=== PATIENT | male | born 1995 | race Caucasian/White ===

== ENCOUNTER 2018-09-30 14:51 | Emergency (ER) | payer MEDICAID, SELFPAY ==
[2018-09-30 14:55] VITALS: BP 120/78; PULSE 68; RESP 16; TEMP 36.6; O2SAT 100
--- NOTE | 2018-09-30 15:01 | W.ED.GENAD ---
Discharge Plan Disposition Patient Disposition: HOME Condition: Stable Discharge Details Chief Complaint: DentalOral Clinical Impression: Dental caries ED Provider: Charles Stone Home Meds and New Rx's Prescriptions: New clindamycin HCl 150 mg capsule 450 mg PO TID 10 Days Qty: 90 RF: 0 No Action penicillin V potassium 500 MG tablet 500 mg PO Q8H PRN PRN10 Days RF: 0 Discharge Instructions Instructions: Dental Caries (ED) Medical Decision Making 23 yo male comes in with months of left upper posterior and mid molar pain. Has been scheduled to have it pull but states his dentist has postponed it multiple times. HAs been on amoxicillin for a month per pt and still has pain so came here for an eval. 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 HE has multiple severely eroded teeth and numerous caries, pain with percussion to the posterior left upper posterior and mid molars with no evidence of abscess at this time. Will add on clindamycin but advised he needs to see his dentist to have this addressed Differential Diagnosis dental caries, dental infection HPI General Mode of arrival: ambulatory. Date/Time Provider Initiated Documentation: 09/30/18 15:01. Limitations to Documentation: no limitations. Information obtained by: patient. History of Present Illness 23 year old M presents to the emergency department with the chief complaint of left upper tooth pain, described as severe, and is localized to the mouth. Patient reports no radiation. Patient started experiencing this month(s) (2) and it has been constant. No relieving factors improve symptom(s), No exacerbating factors reported . Patient notes no other symptoms.. Related Data Home Medications Medication Instructions Recorded Confirmed penicillin V potassium 500 mg PO Q8H PRN PRN 10 Days 03/15/16 tablet clindamycin HCl 450 mg PO TID 10 Days #90 cap 09/30/18 Previous Rx's Medication Instructions Recorded penicillin V potassium 500 mg PO Q8H PRN PRN 10 Days 03/15/16 tablet clindamycin HCl 450 mg PO TID 10 Days #90 cap 09/30/18 Allergies Allergy/AdvReac Type Severity Reaction Status Date / Time No Known Allergies Allergy Unverified 09/30/18 15:01 General Stated Complaint: DentalOral LORRAINE: 4 Review of Systems Review of Systems All systems reviewed & are unremarkable except as noted in HPI and below Constitutional Denies chills, Denies fever(s) and Denies weakness ENT Denies change in voice Cardiovascular Denies chest pain and Denies dyspnea Respiratory Denies cough and Denies dyspnea Gastrointestinal Denies abdominal pain, Denies nausea and Denies vomiting Integumentary/Breasts Denies rash Neurologic Denies weakness [facility] Social History Smoking/Tobacco Use Status: Current every day Drug use: Daily Substance use type: marijuana Do you feel safe at home: Yes Do you feel safe in your relationship?: Yes Exam Const General: no acute distress Orientation: alert HENMT Head: normal to inspection Ears: external ears normal General nose exam: external nose normal Mouth: moist mucous membranes Eyes General: appearance normal, both eyes and all related structures Neck Neck: normal visual inspection Resp Effort & Inspection: normal respiratory effort and able to speak in complete sentences Cardio Rate: regular rate Skin General skin exam: no rashes or lesions noted Neuro General: alert and oriented x3 Extrem General: normal to inspection Psych Mental Status: mental status grossly normal Course Vital Signs Temperature 36.6 C 09/30/18 14:55 Pulse 68 09/30/18 14:55 Respiratory Rate 16 09/30/18 14:55 Blood Pressure 120/78 09/30/18 14:55 Pulse Oximetry 100 09/30/18 14:55 Temperature 36.6 C 09/30/18 14:55 Temperature Source Skin 09/30/18 14:55 Pulse 68 09/30/18 14:55 Respiratory Rate 16 09/30/18 14:55 Respiratory Effort Non-Labored 09/30/18 14:59 Blood Pressure 120/78 09/30/18 14:55 Blood Pressure Position Sitting 09/30/18 14:55 Pulse Oximetry 100 09/30/18 14:55 Oxygen Delivery Method Room Air 09/30/18 14:55 Oxygen Flow Rate 0 09/30/18 14:55 Pain Level 8 09/30/18 14:55
--- NOTE | 2018-09-30 15:09 | ED.GENADUL_ITS ---
Discharge Plan Disposition Patient Disposition: HOME Condition: Stable Discharge Details Chief Complaint: DentalOral Clinical Impression: Dental caries ED Provider: Charles Stone Home Meds and New Rx's Prescriptions: New clindamycin HCl 150 mg capsule 450 mg PO TID 10 Days Qty: 90 RF: 0 No Action penicillin V potassium 500 MG tablet 500 mg PO Q8H PRN PRN10 Days RF: 0 Discharge Instructions Instructions: Dental Caries (ED) Medical Decision Making 23 yo male comes in with months of left upper posterior and mid molar pain. Has been scheduled to have it pull but states his dentist has postponed it multiple times. HAs been on amoxicillin for a month per pt and still has pain so came here for an eval. 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 HE has multiple severely eroded teeth and numerous caries, pain with percussion to the posterior left upper posterior and mid molars with no evidence of abscess at this time. Will add on clindamycin but advised he needs to see his dentist to have this addressed Differential Diagnosis dental caries, dental infection HPI General Mode of arrival: ambulatory . Date/Time Provider Initiated Documentation: 09/30/18 15:01 . Limitations to Documentation: no limitations . Information obtained by: patient . History of Present Illness 23 year old M presents to the emergency department with the chief complaint of left upper tooth pain, described as severe, and is localized to the mouth. Patient reports no radiation. Patient started experiencing this month(s) (2) and it has been constant. No relieving factors improve symptom(s), No exacerbating factors reported . Patient notes no other symptoms.. Related Data Home Medications Medication Instructions Recorded Confirmed penicillin V potassium 500 mg PO Q8H PRN PRN 10 Days 03/15/16 tablet clindamycin HCl 450 mg PO TID 10 Days #90 cap 09/30/18 Previous Rx's Medication Instructions Recorded penicillin V potassium 500 mg PO Q8H PRN PRN 10 Days 03/15/16 tablet clindamycin HCl 450 mg PO TID 10 Days #90 cap 09/30/18 Allergies Allergy/AdvReac Type Severity Reaction Status Date / Time No Known Allergies Allergy Unverified 09/30/18 15:01 General Stated Complaint: DentalOral LORRAINE: 4 Review of Systems Review of Systems All systems reviewed & are unremarkable except as noted in HPI and below Constitutional Denies chills, Denies fever(s) and Denies weakness ENT Denies change in voice Cardiovascular Denies chest pain and Denies dyspnea Respiratory Denies cough and Denies dyspnea Gastrointestinal Denies abdominal pain, Denies nausea and Denies vomiting Integumentary/Breasts Denies rash Neurologic Denies weakness [facility] Social History Smoking/Tobacco Use Status: Current every day Drug use: Daily Substance use type: marijuana Do you feel safe at home: Yes Do you feel safe in your relationship?: Yes Exam Const General: no acute distress Orientation: alert HENMT Head: normal to inspection Ears: external ears normal General nose exam: external nose normal Mouth: moist mucous membranes Eyes General: appearance normal, both eyes and all related structures Neck Neck: normal visual inspection Resp Effort & Inspection: normal respiratory effort and able to speak in complete sentences Cardio Rate: regular rate Skin General skin exam: no rashes or lesions noted Neuro General: alert and oriented x3 Extrem General: normal to inspection Psych Mental Status: mental status grossly normal Course Vital Signs Temperature 36.6 C 09/30/18 14:55 Pulse 68 09/30/18 14:55 Respiratory Rate 16 09/30/18 14:55 Blood Pressure 120/78 09/30/18 14:55 Pulse Oximetry 100 09/30/18 14:55 Temperature 36.6 C 09/30/18 14:55 Temperature Source Skin 09/30/18 14:55 Pulse 68 09/30/18 14:55 Respiratory Rate 16 09/30/18 14:55 Respiratory Effort Non-Labored 09/30/18 14:59 Blood Pressure 120/78 09/30/18 14:55 Blood Pressure Position Sitting 09/30/18 14:55 Pulse Oximetry 100 09/30/18 14:55 Oxygen Delivery Method Room Air 09/30/18 14:55 Oxygen Flow Rate 0 09/30/18 14:55 Pain Level 8 09/30/18 14:55
== END 2018-09-30 15:15 | disposition home or self-care (01) ==
LOC: ER 15:14
PROVIDERS: Emergency Provider Emergency Medicine
DX: K02.9 Dental caries, unspecified (principal)
CPT/HCPCS: 99283

== ENCOUNTER 2018-11-22 18:39 | Emergency (ER) | payer MEDICAID, SELFPAY ==
[2018-11-22 18:46] VITALS: BP 123/59; PULSE 89; RESP 16; TEMP 37.1; O2SAT 98
--- NOTE | 2018-11-22 19:50 | W.ED.GENAD ---
Discharge Plan Disposition Patient Disposition: HOME Condition: Fair Discharge Details Chief Complaint: Abd Prob Clinical Impression: Nausea, vomiting and diarrhea Primary Care Provider: None,None ED Provider: Trini Kiser Home Meds and New Rx's Prescriptions: New ondansetron 4 mg tablet,disintegrating 4 mg PO TID PRN (Reason: nausea and vomiting) Qty: 10 RF: 0 No Action cephalexin [Keflex] 500 mg Capsule 500 mg PO QID RF: 0 Discharge Instructions Instructions: Acute Nausea and Vomiting (ED) Additional Instructions: Encourage hydration. Tylenol and ibuprofen as needed for discomfort. He may use Zofran as prescribed to help with recurrent nausea or vomiting. Please begin probiotic, this is available [id number] and should be taken daily. He will need follow-up with primary care, I have asked her certified caregiver help facilitate follow-up appointment. If you do not hear from them in the next 2 business days, please call. If you develop increased pain, fever/chills, inability to stay hydrated or the new/worsening symptoms please seek care urgently once again. Discharge Data Discharge Date/Time-TO BE ENTERED AT DEPARTURE: 11/22/18 21:04 Medical Decision Making Patient 23-year-old male presenting today with chief complaint of nausea, vomiting and soft bowel movements for the past 2 months. Is concerned that this is linked with him taking Tylenol 3 which he took after having dental pain. States that he has had one soft bowel movement per day since then. Reports that he has vomited x3 today. Is not currently nauseated. Denies any abdominal pain but reports he can have cramping during episodes of emesis.. No shortness of breath or chest pain. Patient currently drinks every day, uses marijuana every day and has for the past several years. Reports that symptoms are worse upon first awakening. Hot showers seem to improve. Patient also believes his eyes have been yellow but did not note any jaundice this time. Will evaluate for any electrolyte abnormalities, check liver panel, hydrate the patient. Abdomen is soft and nontender. I do not see any evidence of acute surgical pathology Labs are reassuring at this time. There is mild leukocytosis but this may be exacerbated by stress. Neurological abnormalities. Patient in particular was concerned about liver function which is normal. Advised only follow-up with primary care physician. Patient does not currently have one, will help establish this. I did advised stopping smoking pot. Patient will be scribed Zofran to help with nausea should return. Advised probiotic. We discussed new/worsening symptoms when to seek care urgently once again. Advised follow-up with primary care within the next few weeks for reevaluation. All his questions and concerns were addressed and he is in agreement this plan HPI General Mode of arrival: ambulatory. Date/Time Provider Initiated Documentation: 11/22/18 19:49. Limitations to Documentation: no limitations. Information obtained by: patient and RN notes reviewed. History of Present Illness 23 year old M presents to the emergency department with the chief complaint of N/V/D, described as moderate, Quality is described as other (cramping), and is localized to the abdomen. Patient reports no radiation. Patient started experiencing this month(s) (2) and it has been intermittent. No relieving factors improve symptom(s), No exacerbating factors reported . Patient notes nausea/vomiting (vomited x 3 today); denies chest pain, cough, diaphoresis, fever/chills, headaches, loss of appetite, rash, shortness of breath and weakness. Patient did receive the following treatments prior to arrival, none Related Data Home Medications Medication Instructions Recorded Confirmed cephalexin [Keflex] 500 mg PO QID 11/22/18 11/22/18 ondansetron 4 mg PO TID PRN #10 tab 11/22/18 Previous Rx's Medication Instructions Recorded ondansetron 4 mg PO TID PRN #10 tab 11/22/18 Allergies Allergy/AdvReac Type Severity Reaction Status Date / Time No Known Allergies Allergy Unverified 11/22/18 18:51 General Stated Complaint: Abd Prob LORRAINE: 4 Review of Systems Constitutional Reports as per HPI, Denies chills, Denies fatigue, Denies fever(s) and Denies headache(s) ENT Denies headache(s) Cardiovascular Reports as per HPI, Denies chest pain and Denies dyspnea Respiratory Reports as per HPI, Denies cough and Denies dyspnea Gastrointestinal Reports as per HPI, Reports abdominal pain (endorses cramping) and Reports change in stool character (soft) Genitourinary Denies system reviewed and no additional complaints, except as docu (patient denies any change in urinary habits) Musculoskeletal Reports as per HPI and Denies back pain Integumentary/Breasts Reports as per HPI and Denies rash Neurologic Reports as per HPI and Denies headache(s) Endocrine Denies fatigue [facility] Social History Smoking/Tobacco Use Status: Current every day Tobacco Type: cigarettes Alcohol Intake: current Alcohol Intake frequency: holidays/special occasions only Drug use: Daily Substance use type: marijuana Do you feel safe at home: Yes Do you feel safe in your relationship?: Yes Exam Const General: cooperative, healthy appearing, comfortable, no acute distress and well developed Nutritional Appearance: average body habitus and well nourished Orientation: alert and awake HENMT Head: normal to inspection Mouth: moist mucous membranes Resp Effort & Inspection: normal respiratory effort, able to speak in complete sentences and no respiratory distress Auscultation: clear to auscultation bilaterally, no rales, no rhonchi and no wheezes Cardio Rate: regular rate Rhythm: regular rhythm Heart Sounds: S1 normal and S2 normal GI Inspection: normal to inspection, no edema and non-distended Palpation: soft, no hepatosplenomegaly, not firm, no guarding, no masses and nontender Percussion: normal to percussion Auscultation: normal bowel sounds Back/Spine/Pelvis Back: no CVA tenderness Skin General skin exam: no rashes or lesions noted Trauma: no lacerations or abrasions Neuro General: alert and awake Cognition: normal cognition Speech: speech normal Gait: normal gait Psych Appearance: grossly normal and well kempt Mental Status: mental status grossly normal Speech and Movement: speech and movement normal Course Vital Signs Temperature 37.1 C 11/22/18 18:46 Pulse 89 11/22/18 18:46 Respiratory Rate 16 11/22/18 18:46 Blood Pressure 123/59 L 11/22/18 18:46 Pulse Oximetry 98 11/22/18 18:46 Temperature 37.1 C 11/22/18 18:46 Temperature Source Skin 11/22/18 18:46 Pulse 89 11/22/18 18:46 Respiratory Rate 16 11/22/18 18:46 Respiratory Effort Non-Labored 11/22/18 18:50 Blood Pressure 123/59 L 11/22/18 18:46 Blood Pressure Position Sitting 11/22/18 18:46 Pulse Oximetry 98 11/22/18 18:46 Oxygen Delivery Method Room Air 11/22/18 18:46 Oxygen Flow Rate 0 11/22/18 18:46 Pain Level 0 11/22/18 18:46
--- NOTE | 2018-11-22 20:01 | ED.GENADUL_ITS ---
Discharge Plan Disposition Patient Disposition: HOME Condition: Fair Discharge Details Chief Complaint: Abd Prob Clinical Impression: Nausea, vomiting and diarrhea Primary Care Provider: None,None ED Provider: Trini Kiser Home Meds and New Rx's Prescriptions: New ondansetron 4 mg tablet,disintegrating 4 mg PO TID PRN (Reason: nausea and vomiting) Qty: 10 RF: 0 No Action cephalexin [Keflex] 500 mg Capsule 500 mg PO QID RF: 0 Discharge Instructions Instructions: Acute Nausea and Vomiting (ED) Additional Instructions: Encourage hydration. Tylenol and ibuprofen as needed for discomfort. He may use Zofran as prescribed to help with recurrent nausea or vomiting. Please begin probiotic, this is available [id number] and should be taken daily. He will need follow-up with primary care, I have asked her career placement specialist help facilitate follow-up appointment. If you do not hear from them in the next 2 business days, please call. If you develop increased pain, fever/chills, inability to stay hydrated or the new/worsening symptoms please seek care urgently once again. Discharge Data Discharge Date/Time-TO BE ENTERED AT DEPARTURE: 11/22/18 21:04 Medical Decision Making Patient 23-year-old male presenting today with chief complaint of nausea, vomiting and soft bowel movements for the past 2 months. Is concerned that this is linked with him taking Tylenol 3 which he took after having dental pain. States that he has had one soft bowel movement per day since then. Reports that he has vomited x3 today. Is not currently nauseated. Denies any abdominal pain but reports he can have cramping during episodes of emesis.. No shortness of breath or chest pain. Patient currently drinks every day, uses marijuana every day and has for the past several years. Reports that symptoms are worse upon first awakening. Hot showers seem to improve. Patient also believes his eyes have been yellow but did not note any jaundice this time. Will evaluate for any electrolyte abnormalities, check liver panel, hydrate the patient. Abdomen is soft and nontender. I do not see any evidence of acute surgical pathology Labs are reassuring at this time. There is mild leukocytosis but this may be exacerbated by stress. Neurological abnormalities. Patient in particular was concerned about liver function which is normal. Advised only follow-up with primary care physician. Patient does not currently have one, will help establish this. I did advised stopping smoking pot. Patient will be scribed Zofran to help with nausea should return. Advised probiotic. We discussed new/worsening symptoms when to seek care urgently once again. Advised follow-up with primary care within the next few weeks for reevaluation. All his questions and concerns were addressed and he is in agreement this plan HPI General Mode of arrival: ambulatory . Date/Time Provider Initiated Documentation: 11/22/18 19:49 . Limitations to Documentation: no limitations . Information obtained by: patient and RN notes reviewed . History of Present Illness 23 year old M presents to the emergency department with the chief complaint of N/V/D, described as moderate, Quality is described as other (cramping), and is localized to the abdomen. Patient reports no radiation. Patient started experiencing this month(s) (2) and it has been intermittent. No relieving factors improve symptom(s), No exacerbating factors reported . Patient notes nausea/vomiting (vomited x 3 today); denies chest pain, cough, diaphoresis, fever/chills, headaches, loss of appetite, rash, shortness of breath and weakness. Patient did receive the following treatments prior to arrival, none Related Data Home Medications Medication Instructions Recorded Confirmed cephalexin [Keflex] 500 mg PO QID 11/22/18 11/22/18 ondansetron 4 mg PO TID PRN #10 tab 11/22/18 Previous Rx's Medication Instructions Recorded ondansetron 4 mg PO TID PRN #10 tab 11/22/18 Allergies Allergy/AdvReac Type Severity Reaction Status Date / Time No Known Allergies Allergy Unverified 11/22/18 18:51 General Stated Complaint: Abd Prob LORRAINE: 4 Review of Systems Constitutional Reports as per HPI, Denies chills, Denies fatigue, Denies fever(s) and Denies headache(s) ENT Denies headache(s) Cardiovascular Reports as per HPI, Denies chest pain and Denies dyspnea Respiratory Reports as per HPI, Denies cough and Denies dyspnea Gastrointestinal Reports as per HPI, Reports abdominal pain (endorses cramping) and Reports change in stool character (soft) Genitourinary Denies system reviewed and no additional complaints, except as docu (patient denies any change in urinary habits) Musculoskeletal Reports as per HPI and Denies back pain Integumentary/Breasts Reports as per HPI and Denies rash Neurologic Reports as per HPI and Denies headache(s) Endocrine Denies fatigue [facility] Social History Smoking/Tobacco Use Status: Current every day Tobacco Type: cigarettes Alcohol Intake: current Alcohol Intake frequency: holidays/special occasions only Drug use: Daily Substance use type: marijuana Do you feel safe at home: Yes Do you feel safe in your relationship?: Yes Exam Const General: cooperative, healthy appearing, comfortable, no acute distress and well developed Nutritional Appearance: average body habitus and well nourished Orientation: alert and awake HENMT Head: normal to inspection Mouth: moist mucous membranes Resp Effort & Inspection: normal respiratory effort, able to speak in complete sentences and no respiratory distress Auscultation: clear to auscultation bilaterally, no rales, no rhonchi and no wheezes Cardio Rate: regular rate Rhythm: regular rhythm Heart Sounds: S1 normal and S2 normal GI Inspection: normal to inspection, no edema and non-distended Palpation: soft, no hepatosplenomegaly, not firm, no guarding, no masses and nontender Percussion: normal to percussion Auscultation: normal bowel sounds Back/Spine/Pelvis Back: no CVA tenderness Skin General skin exam: no rashes or lesions noted Trauma: no lacerations or abrasions Neuro General: alert and awake Cognition: normal cognition Speech: speech normal Gait: normal gait Psych Appearance: grossly normal and well kempt Mental Status: mental status grossly normal Speech and Movement: speech and movement normal Course Vital Signs Temperature 37.1 C 11/22/18 18:46 Pulse 89 11/22/18 18:46 Respiratory Rate 16 11/22/18 18:46 Blood Pressure 123/59 L 11/22/18 18:46 Pulse Oximetry 98 11/22/18 18:46 Temperature 37.1 C 11/22/18 18:46 Temperature Source Skin 11/22/18 18:46 Pulse 89 11/22/18 18:46 Respiratory Rate 16 11/22/18 18:46 Respiratory Effort Non-Labored 11/22/18 18:50 Blood Pressure 123/59 L 11/22/18 18:46 Blood Pressure Position Sitting 11/22/18 18:46 Pulse Oximetry 98 11/22/18 18:46 Oxygen Delivery Method Room Air 11/22/18 18:46 Oxygen Flow Rate 0 11/22/18 18:46 Pain Level 0 11/22/18 18:46
[2018-11-22] MEDS: Normal Saline 1,000 ML 1000 ML IV (20:06)
[2018-11-22 20:13] LABS: Abs Immature Grans 0.03 k/cumm (0.0-0.09); Absolute Basophil Count 0.04 k/cumm (0.0-0.2); Absolute Eosinophil Count 0.07 k/cumm (0.0-0.7); Absolute Lymphocyte Count 2.42 k/cumm (1.2-3.4); Absolute Monocyte Count 0.87 k/cumm (0.11-0.7); Absolute Neutrophil Count 8.49 k/cumm (1.2-6.7); Basophils % 0.3; Eosinophils % 0.6; HCT 41.9 % (40.0-50.0); HGB 14.5 g/dL (13.5-17.5); Immature Grans % 0.3; Lymphocytes % 20.3; Mean Corp. HGB Concentration 34.6 g/dL (32.0-36.0); Mean Corpuscular Hemoglobin 31.2 pg (27.0-33.0); Mean Corpuscular Volume 90.1 fL (80-95); Mean Platelet Volume 8.7 fL (8.0-11.0); Monocytes % 7.3; Neutrophils % 71.2; Platelet Count 273 x1000/uL (130-400); RBC 4.65 m/cumm (4.50-6.00); RBC Distribution Width 12.7 % (11.8-14.1); White Blood Cell Count 11.92 k/cumm (4.4-10.8)
[2018-11-22 20:29] LABS: ALT 27 U/L (12-78); AST 14 U/L (15-37); Alkaline Phosphatase 67 U/L (46-116); Anion Gap 8.6 mmol/L (3-11); BUN 5 mg/dL (7-18); Bilirubin, Total 0.3 mg/dL (0.2-1.0); CO2 28.4 mmol/L (21.0-32.0); Chloride 102 mmol/L (98-107); Glucose 93 mg/dL (70-100); Magnesium 1.8 mg/dL (1.8-2.4); Potassium 3.7 mmol/L (3.5-5.1); Sodium 139 mmol/L (136-145); Total Protein 6.9 g/dL (6.4-8.2)
[2018-11-22 20:30] LABS: Troponin I < 0.02 ng/mL (0.00-0.06)
[2018-11-22 20:56] VITALS: BP 122/67; PULSE 77; RESP 16; TEMP 36.7; O2SAT 97
--- NOTE | 2018-11-26 09:03 | PDOC.ERCMPRO ---
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 Referral faxed to [facility] this am.
--- NOTE | 2018-11-26 09:04 | CMPROGNOTE_ITS ---
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 Referral faxed to [facility] this am.
== END 2018-11-22 21:04 | disposition home or self-care (01) ==
PROVIDERS: Emergency Provider Physician Assistant
DX: R11.2 Nausea with vomiting, unspecified (principal); R19.7 Diarrhea, unspecified
CPT/HCPCS: 36415; 80053; 96360; 99283; 83735; 84484; 85025

== ENCOUNTER 2019-02-06 12:52 | Emergency (ER) | payer MEDICAID, SELFPAY ==
[2019-02-06 12:59] VITALS: BP 117/95; PULSE 87; RESP 20; TEMP 36.7; O2SAT 99
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
[2019-02-06] MEDS: Normal Saline 1,000 ML 1000 ML IV (13:20)
[2019-02-06] MEDS: Ketorolac 15 MG/ML VIAL IVP (13:24)
[2019-02-06] MEDS: LORazepam 2 MG/ML VIAL 1 MG IVP (13:24)
[2019-02-06 13:39] LABS: PTT Activated 24.6 sec (21.0-31.4); Prothrombin Time 9.9 sec (9.3-11.0)
[2019-02-06 13:40] LABS: ALT 24 U/L (12-78); AST 16 U/L (15-37); Albumin 5.1 g/dL (3.4-5.0); Alkaline Phosphatase 69 U/L (46-116); Anion Gap 8.5 mmol/L (3-11); BUN 9 mg/dL (7-18); Bilirubin, Total 0.9 mg/dL (0.2-1.0); CO2 32.5 mmol/L (21.0-32.0); CREATININE 0.86 mg/dL (0.70-1.30); Calcium 9.8 mg/dL (8.5-10.1); Chloride 98 mmol/L (98-107); Glucose 105 mg/dL (70-100); Potassium 4.3 mmol/L (3.5-5.1); Sodium 139 mmol/L (136-145); Total Protein 8.8 g/dL (6.4-8.2)
[2019-02-06] MEDS: Omnipaque 350 MG/ML 100 ML BTL IJ (13:57)
[2019-02-06 14:11] LABS: HGB 17.2 g/dL (13.5-17.5); RBC 5.52 m/cumm (4.50-6.00)
[2019-02-06 14:12] LABS: HCT 48.9 % (40.0-50.0); Mean Corp. HGB Concentration 35.2 g/dL (32.0-36.0); Mean Corpuscular Hemoglobin 31.2 pg (27.0-33.0); Mean Corpuscular Volume 88.6 fL (80-95); Mean Platelet Volume 10.3 fL (8.0-11.0); Platelet Count 308 x1000/uL (130-400); RBC Distribution Width 13.5 % (11.8-14.1)
[2019-02-06 14:22] LABS: Absolute Lymphocyte Count 1.88 k/cumm (1.2-3.4); Absolute Monocyte Count 1.41 k/cumm (0.11-0.7); Atypical Lymphocytes % 3; Diff Comment Manual Differential; RBC Morphology Normal
[2019-02-06 15:04] VITALS: BP 117/80; PULSE 75; RESP 16; O2SAT 98
== END 2019-02-06 15:15 | disposition home or self-care (01) ==
PROVIDERS: Emergency Provider Emergency Medicine
DX: S09.90XA Unspecified injury of head, initial encounter (principal); S39.91XA Unspecified injury of abdomen, initial encounter; V47.6XXA Car passenger injured in collision with fixed or stationary object in traffic accident, initial encounter; R51 Headache; R11.0 Nausea; M54.5 Low back pain
CPT/HCPCS: 36415; 80053; 90471; 96361; 96374; 96375; 99285; 70450; 72125; 74177; 85025; 85610; 85730; 99284; J1885; J2060; J3490

== ENCOUNTER 2019-12-02 16:43 | Emergency (ER) | payer MEDICAID, SELFPAY ==
[2019-12-02 16:52] VITALS: BP 127/77; PULSE 104; RESP 16; TEMP 36.5; O2SAT 98
--- NOTE | 2019-12-02 17:07 | ED.GENADUL_ITS ---
Discharge Plan Disposition Patient Disposition: HOME Condition: Improving Discharge Details Chief Complaint: DentalOral Clinical Impression: Odontalgia Primary Care Provider: None,None ED Provider: Marv Suarez Home Meds and New Rx's Prescriptions: New penicillin V potassium 500 mg tablet 500 mg PO TID 10 Days Qty: 30 RF: 0 Discharge Instructions Instructions: Toothache (ED) Additional Instructions: Please call your dentist to schedule a follow-up and to reschedule your planned extractions. Stop the amoxicillin and begin penicillin as prescribed. Warm salt water gargling will help to speed healing of the infection. Return to the ER for any acute concern. Medical Decision Making 24-year-old male presents from home with known poor dentition, previous dental infections, now with discrete pain and swelling overlying left upper premolar approximately tooth #14. Patient consented for apical tooth anesthesia with lidocaine which I performed and subsequent attempted needle aspiration with scant bloody discharge. Discussed with him that he likely has apical abscess forming I will have him take a course of penicillin. We will have him follow-up with his dentist for recheck. HPI General Mode of arrival: ambulatory . Date/Time Provider Initiated Documentation: 12/02/19 16:45 . Limitations to Documentation: no limitations . Information obtained by: patient . History of Present Illness 24 year old M presents to the emergency department with the chief complaint of Left upper dental pain, described as similar to prior episodes, Quality is described as dull, and is localized to the mouth. Patient reports no radiation. Patient started experiencing this day(s) and it has been constant. No relieving factors improve symptom(s), No exacerbating factors reported . Patient notes denies fever/chills, headaches, loss of appetite and nausea/vomiting. Patient did receive the following treatments prior to arrival, other (Started amoxicillin that he had) Related Data Home Medications Medication Instructions Recorded Confirmed penicillin V potassium 500 mg PO TID 10 Days #30 tab 12/02/19 Previous Rx's Medication Instructions Recorded penicillin V potassium 500 mg PO TID 10 Days #30 tab 12/02/19 Allergies Allergy/AdvReac Type Severity Reaction Status Date / Time No Known Allergies Allergy Unverified 12/02/19 16:56 General Stated Complaint: DentalOral LORRAINE: 4 Review of Systems Narrative: No drooling, change to voice, no fever. Poor dentition. Follows with dentistry. 6 systems reviewed and otherwise negative [facility] Social History Smoking/Tobacco Use Status: Current every day Tobacco Type: cigarettes Alcohol Intake: current Alcohol Intake frequency: holidays/special occasions only Drug use: Daily Substance use type: marijuana Do you feel safe at home: Yes Do you feel safe in your relationship?: Yes Exam Narrative Exam Narrative: GEN: awake, alert, oriented 3. Pleasant, well groomed, interactive. HEAD: Normocephalic, atraumatic ENT: Mucous membranes moist, oropharynx with poor dentition, left upper premolar with broken costs and discrete tenderness at the gum line EYES: PERRL, EOMI CHEST/RESP: Nontender, clear to auscultation bilateral, no wheeze/rhonchi/rales Neuro: Grossly normal neurologic exam, conversant, interactive. Psych: Speech fluent, thoughts congruent, affect normal Course Vital Signs Vital signs: Vital Signs Temperature 36.5 C 12/02/19 16:52 Pulse 104 H 12/02/19 16:52 Respiratory Rate 16 12/02/19 16:52 Blood Pressure 127/77 12/02/19 16:52 Pulse Oximetry 98 12/02/19 16:52 Temperature 36.5 C 12/02/19 16:52 Temperature Source Temporal Artery Scan 12/02/19 16:52 Pulse 104 H 12/02/19 16:52 Respiratory Rate 16 12/02/19 16:52 Respiratory Effort Non-Labored 12/02/19 16:55 Blood Pressure 127/77 12/02/19 16:52 Blood Pressure Position Sitting 12/02/19 16:52 Pulse Oximetry 98 12/02/19 16:52 Oxygen Delivery Method Room Air 12/02/19 16:52 Oxygen Flow Rate 0 12/02/19 16:52 Pain Level 0 12/02/19 16:58
[2019-12-02] MEDS: Penicillin V POTASSIUM 500 MG TAB, 4 TABS/BTL PO (17:31)
== END 2019-12-02 17:40 | disposition home or self-care (01) ==
LOC: ER 17:26
PROVIDERS: Emergency Provider Emergency Medicine
DX: R68.84 Jaw pain (principal); K08.89 Other specified disorders of teeth and supporting structures; R22.0 Localized swelling, mass and lump, head
CPT/HCPCS: 10160

== ENCOUNTER 2019-12-31 13:55 | Emergency (ER) | payer MEDICAID, SELFPAY ==
[2019-12-31 14:03] VITALS: BP 135/80; PULSE 84; RESP 16; TEMP 37.1; O2SAT 100
--- NOTE | 2019-12-31 14:19 | ED.GENADUL_ITS ---
Discharge Plan Disposition Patient Disposition: HOME Condition: Stable Discharge Details Chief Complaint: RashLesion Clinical Impression: Dermatitis Primary Care Provider: None,None ED Provider: Yoel Sue Home Meds and New Rx's Prescriptions: New hydrocortisone 2 % lotion 1 applic TP BID PRNQty: 29.6 RF: 0 Discharge Instructions Instructions: Dermatitis (ED) Additional Instructions: Hydrocortisone cream as directed. Urus-[id number] Benadryl as directed for symptomatic control. Please watch for new or worsening symptoms and return to the ER for any concerns. Medical Decision Making Patient presents with a pruritic erythematous rash that has been present for the past 8 days or so after sleeping in a new hotel. Otherwise asymptomatic. No rash elsewhere on his body. He has not tried any kgoj-nwf-pbvtxet medications for his symptoms. Evaluation is not consistent with scabies, cellulitis, bedbugs, etc. More likely a contact dermatitis. He appears well, nontoxic. Will provide a prescription for hydrocortisone and recommend use [id number] Benadryl as first-line therapy. Patient comfortable this plan and has no additional questions or concerns HPI General Mode of arrival: ambulatory . Date/Time Provider Initiated Documentation: 12/31/19 13:56 . Limitations to Documentation: no limitations . Information obtained by: patient . HPI Narrative: This is a 24-year-old gentleman presenting for an itchy, red rash that has been present daily for roughly 8 days after staying at a new hotel. He denies any obvious new environmental exposures but questions if this may be a reaction to the sheets. He denies any pain, recent illness or trauma. He denies numbness, tingling, weakness. He denies rash elsewhere in his body, mouth or tongue swelling, wheezing or difficulty breathing. He has not tried any vuna-fnv-aciugrc medications. He denies any rash or itching specifically in the webbing of his hands, feet, axilla. Related Data Home Medications Medication Instructions Recorded Confirmed hydrocortisone 1 applic TP BID PRN #29.6 ml 12/31/19 Previous Rx's Medication Instructions Recorded hydrocortisone 1 applic TP BID PRN #29.6 ml 12/31/19 Allergies Allergy/AdvReac Type Severity Reaction Status Date / Time No Known Allergies Allergy Unverified 12/31/19 14:07 General Stated Complaint: RashLesion LORRAINE: 4 Review of Systems Constitutional Constitutional: Denies fever(s) ENT Ears, Nose, Mouth, and Throat: Denies sore throat and Denies tongue swelling Musculoskeletal Musculoskeletal: Denies numbness and Denies tingling Integumentary/Breasts Skin/Breast: Reports rash Neurologic Neurologic: Denies numbness and Denies tingling Allergic/Immunologic Allergic/Immunologic: Denies tongue swelling [facility] Social History Smoking/Tobacco Use Status: Current every day Tobacco Type: cigarettes Alcohol Intake: never Drug use: Daily Substance use type: marijuana Do you feel safe at home: Yes Do you feel safe in your relationship?: Yes Exam Const General: cooperative, healthy appearing, comfortable and no acute distress Orientation: alert and awake HENMT Head: normal to inspection, normocephalic and atraumatic Mouth: moist mucous membranes Eyes Conjunctivae: conjunctivae normal Neck Neck: normal visual inspection, trachea midline and supple Resp Effort & Inspection: normal respiratory effort and able to speak in complete sentences Cardio Rate: regular rate Rhythm: regular rhythm Skin Lesions: no lesions Full body images: 1. Scant, macular-papular, erythematous rash. Areas of excoriation. There is no warmth, induration, fluctuance, weeping. 2. Scant, macular-papular, erythematous rash. Areas of excoriation. There is no warmth, induration, fluctuance, weeping. Neuro General: patient alert, patient awake, patient oriented x3, moves all extremities and no focal motor deficits Gait: normal gait Sensory Exam: no sensory deficits noted Psych Appearance: grossly normal Mental Status: mental status grossly normal Course Vital Signs Vital signs: Vital Signs Temperature 37.1 C 12/31/19 14:03 Pulse 84 12/31/19 14:03 Respiratory Rate 16 12/31/19 14:03 Blood Pressure 135/80 12/31/19 14:03 Pulse Oximetry 100 12/31/19 14:03 Temperature 37.1 C 12/31/19 14:03 Pulse 84 12/31/19 14:03 Respiratory Rate 16 12/31/19 14:03 Respiratory Effort Non-Labored 12/31/19 14:06 Blood Pressure 135/80 12/31/19 14:03 Blood Pressure Position Sitting 12/31/19 14:03 Pulse Oximetry 100 12/31/19 14:03 Oxygen Delivery Method Room Air 12/31/19 14:03 Oxygen Flow Rate 0 12/31/19 14:03 Pain Level 0 12/31/19 14:03
== END 2019-12-31 15:00 | disposition home or self-care (01) ==
PROVIDERS: Emergency Provider Physician Assistant
DX: L23.9 Allergic contact dermatitis, unspecified cause (principal)
CPT/HCPCS: 99283

== ENCOUNTER 2020-04-03 12:18 | Emergency (ER) | payer MEDICAID, SELFPAY ==
--- NOTE | 2020-04-03 12:15 | DI.RAD_ITS ---
EXAM: XR HAND RT COMPLETE CLINICAL HISTORY: R/O fracture. TECHNIQUE: 2D digital imaging was performed. COMPARISON: No exams were available for comparison FINDINGS: BONES: There is a nondisplaced fracture through the proximal metaphysis of the 3rd metacarpal. There is a question of extension into the carpometacarpal joint. No bony destructive lesion is seen. JOINTS: No dislocation present. SOFT TISSUE: Normal. IMPRESSION: Nondisplaced fracture involving the proximal 3rd metacarpal with question of extension into the CMC j oint.CT scan may be considered for further evaluation. Findings were discussed with the emergency department on 04/03/2020. DATA REPOSITORY: RADIATION DOSE DELIVERED:
[2020-04-03 12:22] VITALS: BP 135/87; PULSE 118; RESP 19; TEMP 36.9; O2SAT 95
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
[2020-04-03 13:25] VITALS: BP 117/77; PULSE 76; RESP 20; TEMP 37.1; O2SAT 99
--- NOTE | 2020-04-04 10:28 | W.ED.FU ---
Date of service: 04/04/20 Time of Service: 10:28 Follow Up Plan: Call made to patient regarding positive hand x-ray for proximal third metacarpal fracture no answer, left voicemail. Placed patient on the orthopedic follow-up list.
--- NOTE | 2020-04-05 09:11 | W.ED.FU ---
Date of service: 04/05/20 Time of Service: 09:11 Follow Up Plan: Call made to patient regarding x-ray results, no answer voicemail left.
--- NOTE | 2020-04-08 16:03 | DI.VRAD_ITS ---
PROCEDURE INFORMATION: Exam: XR Right Hand Exam date and time: 04/03/2020 12:42 PM Age: 24 years old Clinical indication: Other: R/O fracture TECHNIQUE: Imaging protocol: XR Right hand. Views: 3 or more views. COMPARISON: No relevant prior studies available. FINDINGS: Bones/joints: Normal. Soft tissues: Normal. IMPRESSION: No acute findings. No fracture Dictated and Authenticated by: Gabo Gleason MD. Ordering:KARIS Forrester MD
== END 2020-04-03 13:41 | disposition home or self-care (01) ==
PROVIDERS: Emergency Provider Registered Nurse Emergency
DX: S67.21XA Crushing injury of right hand, initial encounter (principal); S62.342A Nondisplaced fracture of base of third metacarpal bone, right hand, initial encounter for closed fracture; W23.0XXA Caught, crushed, jammed, or pinched between moving objects, initial encounter
CPT/HCPCS: 26600; 73130

== ENCOUNTER 2021-03-18 13:29 | Emergency (ER) | payer MEDICAID, SELFPAY ==
[2021-03-18 14:04] VITALS: BP 138/70; PULSE 69; RESP 16; TEMP 37; O2SAT 100
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
== END 2021-03-18 15:05 | disposition home or self-care (01) ==
PROVIDERS: Emergency Provider Physician Assistant
DX: S20.211A Contusion of right front wall of thorax, initial encounter (principal); Y04.0XXA Assault by unarmed brawl or fight, initial encounter
CPT/HCPCS: 99283; 71046; 71100

== ENCOUNTER 2021-06-29 17:11 | Outpatient (REF) | payer MEDICAID, SELFPAY ==
[2021-06-29 19:37] LABS: ALT 27 U/L (16-63); AST 15 U/L (15-37); Albumin 4.6 g/dL (3.4-5.0); Alkaline Phosphatase 79 U/L (46-116); Anion Gap 8.3 mmol/L (3-11); BUN 5 mg/dL (7-18); Bilirubin, Total 0.4 mg/dL (0.2-1.0); CO2 29.7 mmol/L (21.0-32.0); CREATININE 0.8 mg/dL (0.70-1.30); Calcium 9.4 mg/dL (8.5-10.1); Calculated LDL 117 mg/dL (<100); Chloride 101 mmol/L (98-107); Cholesterol 176 mg/dL (<200); Glucose 85 mg/dL (74-106); HDL Cholesterol 42 mg/dL (40-60); Potassium 4.3 mmol/L (3.5-5.1); Sodium 139 mmol/L (136-145); TSH (W/Ref FT4) 0.83 uIU/mL (0.36-3.74); Total Protein 7.6 g/dL (6.4-8.2); Triglyceride 86 mg/dL (<150)
== END 2021-06-29 17:12 | disposition home or self-care (01) ==
LOC: LBN 17:11
PROVIDERS: PCP Family Medicine; Visit Provider Family Medicine
DX: R53.83 Other fatigue (principal); Z13.6 Encounter for screening for cardiovascular disorders; I10 Essential (primary) hypertension
CPT/HCPCS: 80053; 80061; 84443

== ENCOUNTER 2021-12-20 09:33 | Emergency (ER) | payer MEDICAID, SELFPAY ==
[2021-12-20 09:37] VITALS: BP 116/57; PULSE 111; RESP 18; TEMP 36.8; O2SAT 100
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
[2021-12-20] MEDS: Cyclobenzaprine 10 MG TAB PO (10:07)
[2021-12-20] MEDS: Cyclobenzaprine 10 MG TAB, 3 TABS/BTL PO (10:07)
[2021-12-20] MEDS: Ibuprofen 400 MG TAB PO (10:07)
== END 2021-12-20 10:13 | disposition home or self-care (01) ==
PROVIDERS: Emergency Provider Registered Nurse Emergency; PCP Nurse Practitioner Family
DX: M43.6 Torticollis (principal)
CPT/HCPCS: 99283

== ENCOUNTER 2022-01-08 14:03 | Emergency (ER) | payer MEDICAID, SELFPAY ==
[2022-01-08 14:10] VITALS: BP 121/74; PULSE 108; RESP 18; TEMP 38; O2SAT 98
--- NOTE | 2022-01-08 15:50 | W.ED.GENAD ---
Discharge Plan Disposition Patient Disposition: HOME Condition: Stable Discharge Details Clinical Impression: Infected dental caries Primary Care Provider: Thomas Noriega ED Provider: Parker Hooks Home Meds and New Rx's Prescriptions: New ibuprofen [IBU] 600 mg tablet 600 mg PO QID PRN (Reason: pain) Qty: 20 0RF Continued bupropion HCl 300 mg tablet extended release 24 hr 300 mg PO QAM Qty: 90 3RF Discharge Instructions Instructions: Dental Abscess (ED) Additional Instructions: If you develop any new or significant worsening of symptoms please return immediately to the emergency department as discussed. Otherwise continue salt water gargles, application of warm compresses to the affected side of the face. If you are not improving in the next 3 days you should follow-up with your primary care provider for reassessment Referrals: Thomas Noriega, NETWORK/TELECOM ENGINEER [Primary Care Provider] - 3 days (If not improving) Discharge Data Discharge Date/Time-TO BE ENTERED AT DEPARTURE: 01/08/22 16:16 Medical Decision Making Patient presenting to the emergency department for chief complaint of dental pain and facial swelling. He states that he has chronic poor dentition and is need of complete oral surgery for removal. In the past he has had this happen before and had dental abscess. He states the pain started a couple days ago with marked facial swelling beginning yesterday. Denies any fever chills difficulty breathing swallowing or associated symptoms. Exam consistent with periapical abscess. no signs of deep neck space infection ( Retropharyngeal abscess, Nicola's angina, Parapharyngeal space infection, Peritonsillar Abscess (BOND ANALYST)) or Epiglottitis. Pt non toxic and stable. Exam is otherwise unremarkable. Marked induration and swelling is noted but no palpable fluctuance. Discussed with patient risk versus benefit of needle aspiration. After discussion of this we will plan on just placing patient on antibiotics with close monitoring and return precautions discussed if not improving. After discussion of diagnosis and plan of care patient has no further needs, questions, or concerns and states clear understanding to return to the emergency department for any worsening symptoms. This documentation was generated using [email or web address] system, please disregard any oddities of phrase or misspellings. HPI General Mode of arrival: ambulatory. Date/Time Provider Initiated Documentation: 01/08/22 14:42. Limitations to Documentation: no limitations. Information obtained by: patient and RN notes reviewed. History of Present Illness 26 year old M presents to the emergency department with the chief complaint of Dental pain with infection, described as moderate, with intensity rated at 6. Quality is described as aching, and is localized to the mouth. Patient reports no radiation. Patient started experiencing this day(s) (1) and it has been constant. No relieving factors improve symptom(s), No exacerbating factors reported . Patient notes fever/chills. Patient did receive the following treatments prior to arrival, NSAID Related Data Home Medications Medication Instructions Recorded Confirmed bupropion HCl 300 mg 24 hr tablet, 300 mg PO QAM #90 tabs 12/07/21 12/20/21 extended release ibuprofen 600 mg tablet (IBU) 600 mg PO QID PRN pain #20 tabs 01/08/22 Previous Rx's Medication Instructions Recorded bupropion HCl 300 mg 24 hr tablet, 300 mg PO QAM #90 tabs 12/07/21 extended release ibuprofen 600 mg tablet (IBU) 600 mg PO QID PRN pain #20 tabs 01/08/22 Allergies Allergy/AdvReac Type Severity Reaction Status Date / Time No Known Allergies Allergy Unverified 12/20/21 09:40 General Stated Complaint: DentalOral LORRAINE: 4 Review of Systems Constitutional Constitutional: Reports chills, Reports fever(s) and Reports malaise ENT Ears, Nose, Mouth, and Throat: Reports as per HPI, Denies change in voice, Reports dental pain, Denies dysphagia, Denies throat swelling and Denies tongue swelling Cardiovascular Cardiovascular: Denies chest pain and Denies dyspnea Respiratory Respiratory: Denies dyspnea, Denies stridor and Denies wheezing Gastrointestinal Gastrointestinal: Denies abdominal pain, Denies dysphagia, Denies nausea and Denies vomiting Integumentary/Breasts Skin/Breast: Denies rash Allergic/Immunologic Allergic/Immunologic: Denies throat swelling, Denies tongue swelling and Denies wheezing PFSH All Active Problems (Updated 01/08/22 @ 15:53 by Parker Hooks NP) Muscular torticollis (Acute) Infected dental caries (Acute) Personal history of nicotine dependence (Acute) 2021- ppd also marijuana smoking Depression (Chronic) Anxiety (Acute 12/13/12) ? PTSD from experience in orphanage. 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 Attention deficit hyperactivity disorder, combined type (Acute 12/13/12) tx in childhood Family History (Updated 05/11/21 @ 16:30 by Tianna Brown) Mother No problems noted. Father No problems noted. Sister No problems noted. Son No problems noted. Daughter No problems noted. Social History (Updated 05/11/21 @ 16:30 by Tianna Brown) Smoking/Tobacco Use Status: Current every day Tobacco Type: cigarettes Quit status: considering quitting Second Hand Exposure: No Smoking risk assessment performed?: Yes Alcohol Intake: former Drug use: Daily Substance use type: marijuana Details: drink until I black out, last drink on Sunday (5 days ago) Household members: family Housing: house Communication Needs: None Do you need help understanding health information?: Rarely Pets and animals: Yes Pets and animals: cat(s) Sexually active: Yes Do you think of yourself as: straight/heterosexual Current gender identity: male What is your relationship status?: How often do you talk on the phone with friends or family?: three or more times per week How often do you get together with friends or relatives?: once per week How often do you attend anabaptist or denominational services?: decline to answer Do you belong to any clubs or organized social groups?: no Panel score (0-1 are the most socially isolated patients): 2 What type of physical activity do you participate in: walking Duration: 30-45 minutes/day Frequency: daily Ashley/Buddhist: None Special ashley needs: No Seatbelt use: sometimes Helmet use: No Drive intox or ride w/intox driver's education instructor: No Do you feel safe at home: Yes Do you feel safe in your relationship?: Yes Exam Const General: cooperative Orientation: alert, awake and oriented x3 Limitations: mental status not altered [facility] Head: normal to inspection and atraumatic Ears: hearing grossly normal bilaterally, normal mastoids bilaterally and no periauricular adenopathy General nose exam: external nose normal Face and sinus: no erythema, edema on the right maxilla and no fluctuance Mouth: oropharynx normal, no drooling, no muffled voice, normal tongue and no trismus Teeth and gingiva: caries, poor dentition and other (Swelling at base of teeth 6 and 7) Throat: posterior oropharynx normal, tonsils normal and uvula midline Eyes General: appearance normal, both eyes and all related structures Pupils: PERRL Neck Neck: normal visual inspection, full ROM, no lymphadenopathy, no meningeal signs, trachea midline, supple, no anterior neck swelling and no midline deformity Resp Effort & Inspection: normal respiratory effort and able to speak in complete sentences Course Vital Signs Vital signs: Vital Signs Temperature 38 C H 01/08/22 14:10 Pulse 108 H 01/08/22 14:10 Respiratory Rate 18 01/08/22 14:10 Blood Pressure 121/74 01/08/22 14:10 Pulse Oximetry 98 01/08/22 14:10 Temperature 38 C H 01/08/22 14:10 Temperature Source Temporal Artery Scan 01/08/22 14:10 Pulse 108 H 01/08/22 14:10 Respiratory Rate 18 01/08/22 14:10 Respiratory Effort Non-Labored 01/08/22 15:17 Blood Pressure 121/74 01/08/22 14:10 Blood Pressure Position Sitting 01/08/22 14:10 Pulse Oximetry 98 01/08/22 14:10 Oxygen Delivery Method Room Air 01/08/22 14:10 Oxygen Flow Rate 0 01/08/22 14:10
[2022-01-08] MEDS: Amoxicillin 875/Clav. 125 TAB PO (16:05)
[2022-01-08] MEDS: Amox. 875/Clav. 125, 2 TABS/BTL 1 TAB PO (16:05)
== END 2022-01-08 16:16 | disposition home or self-care (01) ==
PROVIDERS: Emergency Provider Nurse Practitioner Family; PCP Nurse Practitioner Family
DX: K04.7 Periapical abscess without sinus (principal)
CPT/HCPCS: 99283

== ENCOUNTER 2023-04-26 15:20 | Emergency (ER) | payer MEDICAID, SELFPAY ==
[2023-04-26 15:22] VITALS: BP 142/59; PULSE 84; RESP 16; TEMP 36.6; O2SAT 98
--- NOTE | 2023-04-26 15:50 | ED.GENADUL_ITS ---
Discharge Plan Disposition Patient Disposition: Home Discharge Details Clinical Impression: Abscess, dental Primary Care Provider: Thomas Noriega ED Provider: Cary Douglas Home Meds and New Rx's Prescriptions: New clindamycin HCl [Cleocin HCl] 150 mg capsule 450 mg PO TID Qty: 90 0RF Continued bupropion HCl 300 mg tablet extended release 24 hr 300 mg PO QAM Qty: 90 3RF ibuprofen [IBU] 600 mg tablet 600 mg PO QID PRN (Reason: pain) Qty: 20 0RF Discharge Instructions Instructions: Dental Abscess (ED) Additional Instructions: Take antibiotics as prescribed Gargle with warm salt water Yogurt daily while on antibiotics Schedule appointment dentist, given your referral to a provider that takes Medicaid Ibuprofen and Tylenol for pain you ibuprofen and Tylenol as needed for pain Referrals: Thomas Noriega, FLOOD CONTROL ENGINEER [Primary Care Provider] - Discharge Data Discharge Date/Time-TO BE ENTERED AT DEPARTURE: 04/26/23 16:01 Medical Decision Making 27-year-old male presents with report of abscess to #13, abscess noted to buccal mucosa Drained approximately 4 cc of purulent drainage Afebrile nontoxic, facial swelling noted, no evidence of Nicola's angina No trismus, tolerated procedure without incident Giacomo will place patient on clindamycin and referred to dentist excepting Medicaid locally Return precautions reviewed and patient expressed understanding Medical Records Medical records reviewed: Yes I reviewed the patient's medical records. HPI General Date/Time Provider Initiated Documentation: 04/26/23 15:32 . HPI Narrative: This 27-year-old male presents with report of swelling to left upper gum line, persistent for the past 3 days. Denies fever or chills. States he had significant facial swelling. States he had a prior abscess to this tooth. Does not currently have a dentist. Denies any difficulty swallowing, fever, chills. Related Data Home Medications Medication Instructions Recorded Confirmed bupropion HCl 300 mg 24 hr tablet, 300 mg PO QAM #90 tabs 12/07/21 04/26/23 extended release ibuprofen 600 mg tablet (IBU) 600 mg PO QID PRN pain #20 tabs 01/08/22 04/26/23 clindamycin HCl 150 mg capsule 450 mg (3 x 150 mg) PO TID #90 caps 04/26/23 (Cleocin HCl) Previous Rx's Medication Instructions Recorded bupropion HCl 300 mg 24 hr tablet, 300 mg PO QAM #90 tabs 12/07/21 extended release ibuprofen 600 mg tablet (IBU) 600 mg PO QID PRN pain #20 tabs 01/08/22 clindamycin HCl 150 mg capsule 450 mg (3 x 150 mg) PO TID #90 caps 04/26/23 (Cleocin HCl) Allergies Allergy/AdvReac Type Severity Reaction Status Date / Time No Known Allergies Allergy Unverified 04/26/23 15:25 General Stated Complaint: DentalOral LORRAINE: 4 PFSH All Active Problems (Updated 04/26/23 @ 15:54 by CONSTANCE Anand) Abscess, dental (Acute) Personal history of nicotine dependence (Acute) 2021-06 ppd also marijuana smoking Depression (Chronic) Anxiety (Acute 12/13/12) ? PTSD from experience in [facility]. 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 Attention deficit hyperactivity disorder, combined type (Acute 12/13/12) tx in childhood Family History (Updated 05/11/21 @ 16:30 by Tianna Brown) Mother No problems noted. Father No problems noted. Sister No problems noted. Son No problems noted. Daughter No problems noted. Social History (Updated 05/11/21 @ 16:30 by Tianna Brown) Smoking/Tobacco Use Status: Current every day Tobacco Type: cigarettes Quit status: considering quitting Second Hand Exposure: No Smoking risk assessment performed?: Yes Alcohol Intake: current Alcohol Intake frequency: 0-2 drinks per day Drug use: Daily Substance use type: marijuana Details: drink until I black out, last drink on Sunday (5 days ago) Household members: family Housing: house Communication Needs: None Do you need help understanding health information?: Rarely Pets and animals: Yes Pets and animals: cat(s) Sexually active: Yes Do you think of yourself as: straight/heterosexual Current gender identity: male What is your relationship status?: How often do you talk on the phone with friends or family?: three or more times per week How often do you get together with friends or relatives?: once per week How often do you attend jainism or zoroastrianism services?: decline to answer Do you belong to any clubs or organized social groups?: no Panel score (0-1 are the most socially isolated patients): 2 What type of physical activity do you participate in: walking Duration: 30-45 minutes/day Frequency: daily Ashley/Restoration: None Special ashley needs: No Seatbelt use: sometimes Helmet use: No Drive intox 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 Do you feel safe at home: Yes Do you feel safe in your relationship?: Yes Course Vital Signs Vital signs: Vital Signs Temperature 36.6 C 04/26/23 15:22 Pulse 84 04/26/23 15:22 Respiratory Rate 16 04/26/23 15:22 Blood Pressure 142/59 H 04/26/23 15:22 Pulse Oximetry 98 04/26/23 15:22 Temperature 36.6 C 04/26/23 15:22 Temperature Source Temporal Artery Scan 04/26/23 15:22 Pulse 84 04/26/23 15:22 Respiratory Rate 16 04/26/23 15:22 Respiratory Effort Normal, Non-Labored 04/26/23 15:27 Blood Pressure 142/59 H 04/26/23 15:22 Blood Pressure Position Sitting 04/26/23 15:22 Pulse Oximetry 98 04/26/23 15:22 Oxygen Delivery Method Room Air 04/26/23 15:22 Oxygen Flow Rate 0 04/26/23 15:22 Procedures Abscess I/D Site: Other (dental) Side (if applicable): Left Local Anesthetic: Lidocaine 1% and With Epi Amount of anesthesia used (mL): 1 Technique: Incised with #11 Blade Amount of fluid expressed (mL): 4 Irrigation: No PAWSS Have you Been Recently Intoxicated or Drunk Within the Last 30 days?: No Have you Ever Experienced Previous Episodes of Alcohol Withdrawal?: No Have you ever Experienced Withdrawal Seizures?: No Have you ever Experienced Delirium Tremens(DT)s?: No Have you ever undergone Alcohol Rehabilitation Treatment (i.e, inpt ot outpatient treatment programs)?: No Have you ever Experienced Blackouts?: No Have you ever Combined Alcohol with other Downers within the last 90 days?: No Have you ever Combined Alcohol with any other Substance of Abuse during the last 90 days?: No Positive Blood Alcohol level on Presentation? [PCS.BAL]: No Evidence of Increased Autonomic Activity (i.e. HR>120, tremor, sweating, agitation, nausea)?: No Result: 0
== END 2023-04-26 16:01 | disposition home or self-care (01) ==
PROVIDERS: Emergency Provider Physician Assistant; PCP Nurse Practitioner Family
DX: K04.7 Periapical abscess without sinus
CPT/HCPCS: 41800; 99282; 99283

== ENCOUNTER 2023-10-06 08:58 | Emergency (ER) | payer MEDICAID, SELFPAY ==
[2023-10-06 09:02] VITALS: BP 145/83; PULSE 105; RESP 16; TEMP 37.2; O2SAT 99
[2023-10-06 09:10] VITALS: BP 145/83; PULSE 105; RESP 16; TEMP 37.2; O2SAT 99
--- NOTE | 2023-10-06 09:18 | ED.GENADUL_ITS ---
Discharge Plan Disposition Patient Disposition: Home Condition: Stable Discharge Details Clinical Impression: Dental caries Primary Care Provider: Thomas Noriega ED Provider: Mitzy Lloyd Home Meds and New Rx's Prescriptions: New amoxicillin-pot clavulanate 875-125 mg tablet 1 tab PO BID 10 Days Qty: 20 0RF Discharge Instructions Instructions: Dental Caries (ED) Additional Instructions: Please use the HurriCaine gel up to 3 times daily as directed. Take the antibiotic twice a day for the next 10 days. Take it with yogurt or probiotic. Practice good oral hygiene, brush your teeth twice daily, rinse out your mouth after eating or drinking anything. Consider quitting smoking. You do need to see a dentist. You are given a list for referral. Please take Tylenol or Ibuprofen with food every 4-6 hours as needed for pain and swelling. Referrals: Thomas Noriega, FINISHED CARPET INSPECTOR [Primary Care Provider] - 1 week HPI General Mode of arrival: ambulatory . Date/Time Provider Initiated Documentation: 10/06/23 09:08 . Limitations to Documentation: no limitations . Information obtained by: patient, RN notes reviewed and old records reviewed . HPI Narrative: 28-year-old male presents to the ER with chief complaint of dental pain. Does have generalized poor dentition and reports that there is a cyst that needs to be drained. There is no area of fluctuance no drainable abscess noted. He does have multiple dental caries and eroded teeth. He is requesting dental referral. Patient was given dental resources. Will give him antibiotic and HurriCaine gel. Related Data Home Medications Medication Instructions Recorded Confirmed amoxicillin 875 mg-potassium 1 tab PO BID 10 days #20 tabs 10/06/23 clavulanate 125 mg tablet Previous Rx's Medication Instructions Recorded amoxicillin 875 mg-potassium 1 tab PO BID 10 days #20 tabs 10/06/23 clavulanate 125 mg tablet Allergies Allergy/AdvReac Type Severity Reaction Status Date / Time No Known Allergies Allergy Unverified 10/06/23 09:07 General Stated Complaint: FacialProb LORRAINE: 3 Review of Systems All systems reviewed & are unremarkable except as noted in HPI and below ENT Ears, Nose, Mouth, and Throat: Reports mouth pain Exam HENMT Teeth and gingiva: abnormal tooth or associated gingiva, caries and poor dentition Course Vital Signs Vital signs: Vital Signs Temperature 37.2 C 10/06/23 09:02 Pulse 105 H 10/06/23 09:02 Respiratory Rate 16 10/06/23 09:02 Blood Pressure 145/83 H 10/06/23 09:02 Pulse Oximetry 99 10/06/23 09:02 Temperature 37.2 C 10/06/23 09:10 Temperature Source Skin 10/06/23 09:10 Pulse 105 H 10/06/23 09:10 Respiratory Rate 16 10/06/23 09:10 Respiratory Effort Normal 10/06/23 09:08 Blood Pressure 145/83 H 10/06/23 09:10 Blood Pressure Position Sitting 10/06/23 09:10 Pulse Oximetry 99 10/06/23 09:10 Oxygen Delivery Method Room Air 10/06/23 09:10 Oxygen Flow Rate 0 10/06/23 09:10 Pain Level 0 10/06/23 09:10 Medical Decision Making 28-year-old male presents to the ER with chief complaint of dental pain. Does have generalized poor dentition and reports that there is a cyst that needs to be drained. There is no area of fluctuance no drainable abscess noted. He does have multiple dental caries and eroded teeth. He is requesting dental referral. Patient was given dental resources. Will give him antibiotic and HurriCaine gel. Augmentin and HurriCaine gel ordered. Patient discharged with dental resources. This text was generated using [employer] dictation system, please disregard any oddities of phrase or misspellings. Quality:SDOH Health Related Social Needs: No Data to Display PFSH All Active Problems (Updated 10/06/23 @ 09:19 by Mitzy Lloyd NP) Dental caries (Acute) Personal history of nicotine dependence (Acute) 2021-06 ppd also marijuana smoking Depression (Chronic) Anxiety (Acute 12/13/12) ? PTSD from experience in [facility]. 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 Attention deficit hyperactivity disorder, combined type (Acute 12/13/12) tx in childhood Family History Mother No problems noted. Father No problems noted. Sister No problems noted. Son No problems noted. Daughter No problems noted. Social History Smoking/Tobacco Use Status: Current every day Tobacco Type: cigarettes Quit status: considering quitting Second Hand Exposure: No Smoking risk assessment performed?: Yes Alcohol Intake: current Alcohol Intake frequency: 0-2 drinks per day Drug use: Daily Substance use type: marijuana Household members: family Housing: house Communication Needs: None Do you need help understanding health information?: Rarely Pets and animals: Yes Pets and animals: cat(s) Sexually active: Yes Do you think of yourself as: straight/heterosexual Current gender identity: male What is your relationship status?: How often do you talk on the phone with friends or family?: three or more times per week How often do you get together with friends or relatives?: once per week How often do you attend hoahaoism or mosque services?: decline to answer Do you belong to any clubs or organized social groups?: no Panel score (0-1 are the most socially isolated patients): 2 What type of physical activity do you participate in: walking Duration: 30-45 minutes/day Frequency: daily Ashley/Nondenominational: None Special ashley needs: No Seatbelt use: sometimes Helmet use: No Drive intox or ride w/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 Do you feel safe at home: Yes Do you feel safe in your relationship?: Yes PAWSS Have you Been Recently Intoxicated or Drunk Within the Last 30 days?: Yes Have you Ever Experienced Previous Episodes of Alcohol Withdrawal?: No Have you ever Experienced Withdrawal Seizures?: No Have you ever Experienced Delirium Tremens(DT)s?: No Have you ever undergone Alcohol Rehabilitation Treatment (i.e, inpt ot outpatient treatment programs)?: No Have you ever Experienced Blackouts?: No Have you ever Combined Alcohol with other Downers within the last 90 days?: No Have you ever Combined Alcohol with any other Substance of Abuse during the last 90 days?: No Positive Blood Alcohol level on Presentation? [PCS.BAL]: No Evidence of Increased Autonomic Activity (i.e. HR>120, tremor, sweating, agitation, nausea)?: No Result: 1
[2023-10-06] MEDS: Benzocaine 20% Gel 30 GM JAR MM (09:25)
[2023-10-06] MEDS: Ibuprofen 600 MG TAB PO (09:26)
[2023-10-06] MEDS: Amoxicillin 875/Clav. 125 TAB PO (09:26)
== END 2023-10-06 09:33 | disposition home or self-care (01) ==
PROVIDERS: Emergency Provider Registered Nurse Emergency; PCP Nurse Practitioner Family
DX: K02.9 Dental caries, unspecified (principal); F17.210 Nicotine dependence, cigarettes, uncomplicated
CPT/HCPCS: 99283